=== PATIENT | female | born 1980 | race Asian ===

== ENCOUNTER 2016-09-16 11:16 | Emergency (ER) | payer BC ==
[~2016-09-16] VITALS: Ht 147.3 cm; Wt 36.0 kg
[~2016-09-16 11:16] MED LIST: EVE1000C3 PO; MULT-82 PO
[2016-09-16] MEDS ORDERED: SODIUM CHLORIDE FLUSH 10ML SYR IVF ONE (13:00)
[2016-09-16] MEDS ORDERED: MAALOX/HYOSCYAMINE/LIDOCAINE 45 ML BOTTLE PO ONE (13:00)
[2016-09-16] MEDS ORDERED: SODIUM CHLORIDE 0.9% 1,000ML IVBOLUS ONE (13:00)
[2016-09-16] MEDS ORDERED: ONDANSETRON 2MG/ML, 2ML IVPush ONE (13:00)
[2016-09-16] MEDS ORDERED: ONDANSETRON 2MG/ML, 2ML ONE (13:10)
[2016-09-16] MEDS ORDERED: MAALOX/HYOSCYAMINE/LIDOCAINE 45 ML BOTTLE ONE (13:10)
[2016-09-16 13:27] LABS: ASPARTATE AMINO TRANSFERASE 15 U/L (15-37); BLOOD UREA NITROGEN 7 mg/dL (7-18)
[2016-09-16 13:37] LABS: IS PT STATUS REG ER OR PRE ER? YES
[2016-09-16 14:48] VITALS: BP 91/60
== END 2016-09-16 15:15 | disposition home or self-care (01) ==
LOC: ED 14:12
DX: R07.2 Precordial pain (principal); K21.9 Gastro-esophageal reflux disease without esophagitis
CPT/HCPCS: 36415; 71010; 76700; 80053; 83690; 84484; 85025; 93005; 96361; 96374; 99285; J2405; J7030